=== PATIENT | female | born 1960 | race Caucasian/White ===

== ENCOUNTER 2021-02-19 05:19 | Emergency (ER) | payer OTHER ==
[~2021-02-19] VITALS: Ht 154.9 cm; Wt 61.2 kg
--- NOTE | 2021-02-19 05:30 | NUR ---
pt bibra c/o back ,laft arm,and righ leg pain. stating she was able to walk but now she feels she is weak. pt is a/o x4 .pt placed pt on monitor.
[2021-02-19 06:14] LABS: BASOPHILS % (AUTO) 0.2 % (0.0-2.0); EOSINOPHILS % (AUTO) 2.5 % (0.0-6.0); HEMATOCRIT 34 % (33-45); HEMOGLOBIN 11.1 g/dL (11.5-14.8); LYMPHOCYTES # (AUTO) 0.7 K/uL (0.8-4.8); MEAN CORPUSCULAR HGB CONC 33 g/dl (31.0-36.0); MEAN CORPUSCULAR VOLUME 86 fL (82-100); MONOCYTES # (AUTO) 0.5 K/uL (0.1-1.30); MONOCYTES % (AUTO) 6.8 % (2.0-12.0); NEUTROPHILS # (AUTO) 5.5 K/uL (1.8-8.9); NEUTROPHILS % (AUTO) 80.5 % (43.0-81.0); PLATELET COUNT (AUTO) 368 K/uL (150-450); RED BLOOD CELL COUNT(AUTO) 3.94 MIL/uL (4.0-5.2); WHITE BLOOD COUNT (AUTO) 6.8 K/uL (4.3-11.0)
[2021-02-19 06:30] LABS: CALCIUM, SERUM 9.4 mg/dL (8.5-10.1); CARBON DIOXIDE 33 mmol/L (21-32); CHLORIDE 99 mmol/L (98-107); CREATININE 0.8 mg/dL (0.6-1.3); GLUCOSE 122 mg/dL (74-106); POTASSIUM 3.3 mmol/L (3.5-5.1); SODIUM SERUM 139 mmol/L (136-145); UREA NITROGEN, BLOOD 11 mg/dL (7-18)
[2021-02-19 06:36] LABS: ALANINE AMINOTRANSFERASE 28 U/L (12-78); ALKALINE PHOSPHATASE 172 U/L (46-116); ASPARTATE AMINOTRANSFERASE 18 U/L (15-37); BILIRUBIN,DIRECT 0.2 mg/dL (0.0-0.2); BILIRUBIN,TOTAL 0.6 mg/dL (0.2-1.0); TOTAL PROTEIN, SERUM 7.4 g/dL (6.4-8.2)
[2021-02-19] MEDS ORDERED: CYCLOBENZAPRINE 10 MG TABLET PO ONE (07:00)
[2021-02-19] MEDS ORDERED: IOHEXOL-300 100 ML VIAL IV ONE (07:00)
[2021-02-19] MEDS ORDERED: IV NS 0.9% 1,000 ML IV ONE (07:00)
[2021-02-19] MEDS ORDERED: KETOROLAC TROMETHAMINE INJ 30 MG/ML VIAL IV ONE (07:00)
[2021-02-19] MEDS ORDERED: IV NS 0.9% 250 ML IV ONE (07:01)
[2021-02-19] MEDS ORDERED: KETOROLAC TROMETHAMINE 15 MG/ML VIAL ONE (07:18)
[2021-02-19] MEDS ORDERED: CYCLOBENZAPRINE 10 MG TABLET ONE (07:18)
[2021-02-19 07:44] LABS: THYROID STIMULATING HORMONE 1.513 uIU/mL (0.358-3.74)
[2021-02-19] MEDS ORDERED: MULT-1200 PO (08:21)
[2021-02-19] MEDS ORDERED: GABA-532 PO (08:21)
--- NOTE | 2021-02-19 08:52 | NUR ---
COVID SWAB DONE AND SENT TO LAB
--- NOTE | 2021-02-19 09:00 | NUR ---
[facility] [phone] FAX [phone] FACE SHEET
--- NOTE | 2021-02-19 09:23 | NUR ---
PT TAKEN TO MRI
--- NOTE | 2021-02-19 09:25 | NUR ---
CALLED DR. GONCALVES LEFT MSG AND PAGED.
--- NOTE | 2021-02-19 09:28 | NUR ---
DR. GONCALVES SPEAKING WITH DR. CLARK
--- NOTE | 2021-02-19 10:18 | NUR ---
FAXED COVID RESULT TO [phone] [facility] / [facility]
--- NOTE | 2021-02-19 11:08 | NUR ---
PT ACCEPTED TO [facility] [address] [facility] ROOM [address][id number] PLEASE CALL [phone] FOR REPORT PER ADELINE. SHE WILL CALL BACK WITH TRANSPORT INFO.
--- NOTE | 2021-02-19 12:45 | NUR ---
TRANSPORT IS AT 1400 AM [facility] PER YOLANDA
[2021-02-19 14:07] VITALS: BP 134/86
--- NOTE | 2021-02-19 14:57 | NUR ---
REPORT GIVEN TO CHARGE NURSE EARL
== END 2021-02-19 15:02 | disposition short-term general hospital (02) ==
LOC: EDBD 05:21 → ER 05:21
DX: C80.1 Malignant (primary) neoplasm, unspecified (principal); C79.51 Secondary malignant neoplasm of bone; R91.8 Other nonspecific abnormal finding of lung field; Z20.822 Contact with and (suspected) exposure to COVID-19; K76.9 Liver disease, unspecified
CPT/HCPCS: 70450; 71045; 71260; 72141; 72146; 72148; 80048; 80076; 83605; 84443; 84484; 85025; 87426; 93005; 96361; 96374; 99291; 99292; C9803; J1885; J7050; Q9967; 36415